=== PATIENT | male | born 1940 | race Caucasian/White ===

== ENCOUNTER 2017-10-02 20:52 | Inpatient (IN) | payer OTHER ==
[~2017-10-02] VITALS: Ht 182.9 cm; Wt 83.2 kg
[2017-10-02] MEDS ORDERED: DIPH25TA33 PO (21:50)
[2017-10-02] MEDS ORDERED: ATV/1 PO ×2 (21:50)
[2017-10-02] MEDS ORDERED: SERT-234 PO (21:50)
[2017-10-02] MEDS ORDERED: PROM25TA9 PO (21:50)
[2017-10-02] MEDS ORDERED: LEVO137T3 PO (21:50)
[2017-10-02] MEDS ORDERED: MIRT15TA PO (21:50)
[2017-10-02] MEDS ORDERED: ATEN50TA8 PO (21:50)
[2017-10-02] MEDS ORDERED: RISP2TAB22 PO (21:50)
--- NOTE | 2017-10-02 21:52 | EMERGENCY ROOM VISIT NOTE ---
History Report prepared by Oralia: Cadence Brown Under the Supervision of: Dr. Darshana Salmeron M.D. First contact with patient: 21:37 Chief Complaint: ALTERED MENTAL STATUS Stated Complaint: AMS History of Present Illness The patient is a 77 year old male who presents to the Emergency Room with complaints of an altered mental status today. Per family, the patient is very confused and did not take his medications today or yesterday. Per family, the patient also has had slurred speech and has fallen four times in the last two days. Per his family, the patient broke his glasses from one of these falls. Per family, the patient has had diarrhea but no fevers. His family reports that the patient is not on blood thinners. Limited HPI secondary to AMS. Source of History: family History Limited By: AMS Onset: today Position: other (global) Quality: other (altered mental status ) Associated Symptoms: + diarrhea, No fevers Review of Systems Limited ROS secondary to AMS. Past Medical & Surgical Medical Problems: (1) Diarrhea Unable to obtain medical history sheet secondary to AMS. Family History Unable to obtain medical history sheet secondary to AMS. Social History Smoking Status: Current Some Day Smoker Current/Historical Medications Scheduled Atenolol (Tenormin), 75 MG PO DAILY Levothyroxine Sodium (Levothyroxine Sodium), 137 MCG PO DAILY Mirtazapine (Remeron), 7.5 MG PO HS Risperidone (Risperdal), 2 MG PO BID Sertraline (Zoloft), 150 MG PO DAILY Scheduled PRN Diphenhydramine Hcl (Diphenhydramine Hcl), 25 MG PO BID PRN for Anxiety Lorazepam (Ativan), 1 MG PO QID PRN for Anxiety Lorazepam (Ativan), 0.5 MG PO DAILY PRN for Anxiety Promethazine Hcl (Phenergan), 25 MG PO BID PRN for Nausea Allergies Coded Allergies: No Known Allergies (Unverified , 10/02/17) Physical Exam Vital Signs Date Time Temp Pulse Resp B/P (MAP) Pulse Ox O2 Delivery O2 Flow Rate FiO2 10/03/17 01:09 126/67 10/02/17 23:02 37.6 104 127/63 96 Room Air 10/02/17 20:59 97 22 156/78 99 Room Air Physical Exam Vital signs reviewed. General: Chronically ill, edentulous male, in no significant distress. HEENT: No scleral icterus, PERRLA, neck supple. Atraumatic. Dry mucous membranes. Cardiovascular: Regular rate and rhythm, no extra sounds. Pulmonary: Clear to auscultation bilaterally, normal work of breathing. Abdomen: Soft, nontender, nondistended, positive bowel sounds. Musculoskeletal: Atraumatic, no peripheral edema. Some bruising on the left second toe. Fungal changes of the toenails bilaterally. Dry stool on bottom of feet. Genitourinary: Excoriated dermatitis of the inguinal folds, incontinent of stool. Neurologic: Agitated and confused, unable to speak coherently. Follows simple commands with 's help. Moves all extremities. Skin: Warm, dry, no rash Medical Decision & Procedures ER Provider Diagnostic Interpretation: Radiology results as stated below per my review and radiologist interpretation: CT OF THE HEAD WITHOUT CONTRAST CLINICAL HISTORY: fall [facility], AMS COMPARISON STUDY: No previous studies for comparison. CT DOSE: 691.05 mGy.cm TECHNIQUE: Helical axial images of the head were obtained without IV contrast. Automated exposure control was utilized for the study. A dose lowering technique was utilized adhering to the principles of ALARA. FINDINGS: Exam is mildly compromised by motion artifact. No acute intracranial hemorrhage, midline shift or mass effect is present. Mild atrophy is noted. Basilar cisterns are patent. Ventricular system is unremarkable. There are no extra-axial collections. Mayo-white differentiation is preserved. There are no findings to suggest acute dural sinus thrombosis or acute territorial infarct. There is no calvarial fracture. IMPRESSION: 1. No acute intracranial findings. 2. No calvarial fracture. Electronically signed by: Tom Wong M.D. 10/02/2017 10:40 PM Dictated Date/Time: 10/02/2017 10:37 PM CHEST ONE VIEW PORTABLE CLINICAL HISTORY: fall w [facility], AMS COMPARISON STUDY: No previous studies for comparison. FINDINGS: There are lower cervical surgical clips likely from thyroidectomy. Lung volumes are diminished. There is no lobar consolidation or evidence for pulmonary edema. Mild bibasilar opacities favor atelectasis. Cardiac size is normal. IMPRESSION: Suspected hypoventilatory study. No acute cardiopulmonary findings. Mild bibasilar opacities which favor atelectasis. Electronically signed by: Tom Wong M.D. 10/02/2017 10:36 PM Dictated Date/Time: 10/02/2017 10:35 PM Laboratory Results Test 10/02/17 20:27 10/02/17 22:23 10/03/17 00:20 Direct Bilirubin 0.2 mg/dl (0-0.2) Thyroid Stimulating Hormone (TSH) 0.010 uIu/ml (0.300-4.500) Bedside Troponin I < 0.030 ng/ml (0-0.045) Urine Color ORANGE Urine Appearance CLEAR (CLEAR) Urine pH 5.5 (4.5-7.5) Urine Specific [place] 1.015 (1.000-1.030) Urine Protein NEG (NEG) Urine Glucose (UA) NEG (NEG) Urine Ketones TRACE (NEG) Urine Occult Blood NEG (NEG) Urine Nitrite NEG (NEG) Urine Bilirubin NEG (NEG) Urine Urobilinogen NEG (NEG) Urine Leukocyte Esterase NEG (NEG) Laboratory results per my review. Medications Administered Medications (Trade) Dose Ordered Sig/Kika Route Start Time Stop Time Status Last Admin Dose Admin Sodium Chloride 250 ml @ 999 mls/hr Q16M STAT IV 10/02/17 21:53 10/02/17 22:08 DC 10/02/17 22:07 999 MLS/HR Sodium Chloride 1,000 ml @ 150 mls/hr Q6H40M STAT IV 10/02/17 21:53 10/03/17 02:57 DC 10/02/17 22:07 150 MLS/HR Sodium Chloride 250 ml @ 999 mls/hr Q16M STAT IV 10/03/17 00:08 10/03/17 00:23 DC 10/03/17 00:41 999 MLS/HR Haloperidol Lactate (Haldol Inj) 2.5 mg NOW STAT IV 10/03/17 00:23 10/03/17 00:24 DC 10/03/17 00:40 2.5 MG ECG Indication: altered mental status Rate (beats per minute): 103 Rhythm: sinus tachycardia Findings: no acute ischemic change, no ectopy ED Course 2146: Past medical records reviewed. The patient was evaluated in room B9. A complete history and physical examination was performed. 2153: Ordered Sodium Chloride 1,000 ml @ 150 mls/hr IV, Sodium Chloride 250 ml @ 999 mls/hr IV. 0008: Ordered Sodium Chloride 250 ml @ 999 mls/hr IV. 0023: Ordered Haldol Inj 2.5 mg IV. 0026: Ordered Haldol Inj 5 mg. 0030: I reviewed the patient's case with Dr. Montilla. He will evaluate the patient for further management. 0035: Upon reevaluation, the patient is resting comfortably. I discussed laboratory and radiographic results with his family. They verbalized agreement of the treatment plan. The patient will be evaluated for further management and care. Medical Decision Differential diagnosis: Etiologies such as metabolic, infection, hypoglycemia, electrolyte abnormalities , cardiac sources, intracerebral event, toxicologic, neurologic, viral illness, C. diff colitis, GI bleed, polypharmacy, as well as others were entertained. This pt was evaluated and appeared to be in no distress. Pt was initially calm and directable. Pt was unkempt and had lots of dried stool on him. Nurses cleaning him are concerned for an inability to care at home. CT head is neg for intracranial abnl. Lab work is significant for a mild dehydration. Pt was cathed for a urine sample and >1600ml or urine was obtained. PT was hydrated with NSS. Pt required sedation for increasing agitation and dangerous behavior. He was given IV haldol. Case was d/w the hospitalist for further management. His family was made aware of the plan and agrees. Medication Reconcilliation Current Medication List: was personally reviewed by me Blood Pressure Screening Patient's blood pressure: Elevated blood pressure will be monitored by the hospitalist Consults Consulting Physician: Dr. Ross Returned Call: 0030 I reviewed the patient's case with Dr. Montilla. He will evaluate the patient for further management. Impression Primary Impression: Altered mental status Additional Impression: Urinary retention Scribe Attestation The scribe's documentation has been prepared under my direction and personally reviewed by me in its entirety. I confirm that the note above accurately reflects all work, treatment, procedures, and medical decision making performed by me. Departure Information Dispostion Being Evaluated By Hospitalist Patient Instructions My [facility] Problem Qualifiers
[2017-10-02] MEDS ORDERED: SODIUM CHLORIDE 0.9% 1000ML 1,000 ML IV STA (21:53)
[2017-10-02] MEDS ORDERED: SODIUM CHLORIDE 0.9% 250ML 250 ML IV STA (21:53)
[2017-10-02 22:05] LABS: BASO % 0.2 %; BASO ABS # 0.02 K/uL (0-0.2); HEMATOCRIT 42.8 % (42-52); HEMOGLOBIN 14.6 g/dL (14.0-18.0); IG# 0.04 K/uL (0.00-0.02); LYMPH % 9.1 %; MEAN CELL VOLUME 84.4 fL (80-100); MEAN CORPUSCULAR HEMOGLOBIN 28.8 pg (25-34); MEAN CORPUSCULAR HGB CONC 34.1 g/dl (32-36); MEAN PLATELET VOLUME 10.1 fL (7.4-10.4); MONO % 2.4 %; MONO ABS # 0.29 K/uL (0.11-0.59); NEUT ABS # 10.63 K/uL (1.4-6.5); PLATELET COUNT 225 K/uL (130-400); RED CELL DISTRIBUTION WIDTH CV 15.4 % (11.5-14.5); RED CELL DISTRIBUTION WIDTH SD 46.6 fL (36.4-46.3); WHITE BLOOD COUNT 12.08 K/uL (4.8-10.8)
[2017-10-02 22:13] LABS: ALBUMIN 3.7 gm/dl (3.4-5.0); CALCIUM 7.3 mg/dl (8.5-10.1); CREATININE 1.63 mg/dl (0.60-1.40); POTASSIUM 3.8 mmol/L (3.5-5.1)
[2017-10-02 22:16] LABS: TOTAL PROTEIN 8.1 gm/dl (6.4-8.2)
--- NOTE | 2017-10-02 22:38 | DIAGNOSTIC IMAGING REPORT ---
CHEST ONE VIEW PORTABLE CLINICAL HISTORY: fall w [facility], AMS COMPARISON STUDY: No previous studies for comparison. FINDINGS: There are lower cervical surgical clips likely from thyroidectomy. Lung volumes are diminished. There is no lobar consolidation or evidence for pulmonary edema. Mild bibasilar opacities favor atelectasis. Cardiac size is normal. IMPRESSION: Suspected hypoventilatory study. No acute cardiopulmonary findings. Mild bibasilar opacities which favor atelectasis. Electronically signed by: Tom Wong M.D. 10/02/2017 10:36 PM Dictated Date/Time: 10/02/2017 10:35 PM
--- NOTE | 2017-10-02 22:41 | DIAGNOSTIC IMAGING REPORT ---
CT OF THE HEAD WITHOUT CONTRAST CLINICAL HISTORY: fall [facility], AMS COMPARISON STUDY: No previous studies for comparison. CT DOSE: 691.05 mGy.cm TECHNIQUE: Helical axial images of the head were obtained without IV contrast. Automated exposure control was utilized for the study. A dose lowering technique was utilized adhering to the principles of ALARA. FINDINGS: Exam is mildly compromised by motion artifact. No acute intracranial hemorrhage, midline shift or mass effect is present. Mild atrophy is noted. Basilar cisterns are patent. Ventricular system is unremarkable. There are no extra-axial collections. Mayo-white differentiation is preserved. There are no findings to suggest acute dural sinus thrombosis or acute territorial infarct. There is no calvarial fracture. IMPRESSION: 1. No acute intracranial findings. 2. No calvarial fracture. Electronically signed by: Tom Wong M.D. 10/02/2017 10:40 PM Dictated Date/Time: 10/02/2017 10:37 PM
[2017-10-03] MEDS ORDERED: SODIUM CHLORIDE 0.9% 250ML 250 ML IV STA (00:08)
[2017-10-03] MEDS ORDERED: HALOPERIDOL LACTATE 5 MG/ML 1 ML VIAL IV STA (00:23)
[2017-10-03] MEDS ORDERED: HALOPERIDOL LACTATE 5 MG/ML 1 ML VIAL ONE (00:26)
[2017-10-03] MEDS ORDERED: LORAZEPAM 2 MG/ML 1 ML VIAL IV STA (01:41)
[2017-10-03] MEDS ORDERED: LORAZEPAM 1 MG TAB PO PRN (01:45)
[2017-10-03 02:47] VITALS: BP 147/60; PULSE 107; TEMP 36.8; O2SAT 94; Ht 182.9 cm; Wt 83.2 kg
[2017-10-03] MEDS: SODIUM CHLORIDE 0.9% 1000ML 1,000 ML IV SCH ×3 (03:06→23:11)
[2017-10-03] MEDS ORDERED: PNEUMOCOCCAL POLYSACCHARIDES 25 MCG/0.5 ML VIAL/SYR IM. ONE (05:00)
[2017-10-03] MEDS ORDERED: PNEUMOCOCCAL ADMINISTRATION CHARGE ONE (05:00)
[2017-10-03] MEDS ORDERED: INFLUENZA ADMINISTRATION CHARGE ONE (05:00)
[2017-10-03] MEDS ORDERED: INFLUENZA VACCINE HIGH DOSE 65+ 0.5 ML SYR IM. ONE (05:00)
--- NOTE | 2017-10-03 05:12 | History and Physical ---
History & Physical Date & Time of Service: Oct 03, 2017 at 04:54 Chief Complaint: Altered Mental Status, Diarrhea Primary Care Physician: Brant Manriquez M.D. History of Present Illness Source: family 77 year old male who was brought in by family members for confusion an altered mental status. As per family, patient's baseline is that he is ambulatory and speaks coherently. In recent days patient has been having confusion - slurred speech and has fallen four times in the last two days. Patient also noted to have diarrhea at home but afebrile. Family members help patient with medications at home which includes promethazine when he has dry heaves and Ativan when he is agitated. Past Medical/Surgical History This is a 77 year old M who was brought in by family for Social History Smoking Status: Current Every Day Smoker Allergies Coded Allergies: No Known Allergies (Unverified , 10/02/17) Home Medications Scheduled Atenolol (Tenormin), 75 MG PO DAILY Levothyroxine Sodium (Levothyroxine Sodium), 137 MCG PO DAILY Mirtazapine (Remeron), 7.5 MG PO HS Risperidone (Risperdal), 2 MG PO BID Sertraline (Zoloft), 150 MG PO DAILY Scheduled PRN Diphenhydramine Hcl (Diphenhydramine Hcl), 25 MG PO BID PRN for Anxiety Lorazepam (Ativan), 1 MG PO QID PRN for Anxiety Lorazepam (Ativan), 0.5 MG PO DAILY PRN for Anxiety Promethazine Hcl (Phenergan), 25 MG PO BID PRN for Nausea Review of Systems Patient cannot provide history for review of systems Physical Exam Vital Signs Date Time Temp Pulse Resp B/P (MAP) Pulse Ox O2 Delivery O2 Flow Rate FiO2 10/03/17 02:47 36.8 107 22 147/60 94 Room Air 10/03/17 02:17 37.6 104 22 126/67 96 10/03/17 01:09 126/67 10/02/17 23:02 37.6 104 127/63 96 Room Air 10/02/17 20:59 97 22 156/78 99 Room Air General Appearance: + pertinent finding (patient verbal but incoheren) Head: normocephalic, atraumatic Eyes: normal inspection, EOMI ENT: normal ENT inspection, pharynx normal Neck: supple, no JVD, trachea midline Respiratory/Chest: chest non-tender, lungs clear, normal breath sounds, no respiratory distress, no accessory muscle use Cardiovascular: no edema, no JVD, + tachycardia Abdomen/GI: normal bowel sounds, non tender, soft, no organomegaly, + pertinent finding (patient has excoriations around groin area) Extremities/Musculoskelatal: + pertinent finding (patient on restraints, patient has brusing of toes) Neurologic/Psych: + disoriented Skin: + pertinent finding (excoriations around groin area) Diagnostics Laboratory Results Results Past 24 Hours Test 10/02/17 20:27 10/02/17 22:23 10/03/17 00:20 10/03/17 01:24 Range/Units White Blood Count 12.08 4.8-10.8 K/uL Red Blood Count 5.07 4.7-6.1 M/uL Hemoglobin 14.6 14.0-18.0 g/dL Hematocrit 42.8 42-52 % Mean Corpuscular Volume 84.4 80-100 fL Mean Corpuscular Hemoglobin 28.8 25-34 pg Mean Corpuscular Hemoglobin Concent 34.1 32-36 g/dl Platelet Count 225 130-400 K/uL Mean Platelet Volume 10.1 7.4-10.4 fL Neutrophils (%) (Auto) 88.0 % Lymphocytes (%) (Auto) 9.1 % Monocytes (%) (Auto) 2.4 % Eosinophils (%) (Auto) 0.0 % Basophils (%) (Auto) 0.2 % Neutrophils # (Auto) 10.63 1.4-6.5 K/uL Lymphocytes # (Auto) 1.10 1.2-3.4 K/uL Monocytes # (Auto) 0.29 0.11-0.59 K/uL Eosinophils # (Auto) 0.00 0-0.5 K/uL Basophils # (Auto) 0.02 0-0.2 K/uL RDW Standard Deviation 46.6 36.4-46.3 fL RDW Coefficient of Variation 15.4 11.5-14.5 % Immature Granulocyte % (Auto) 0.3 % Immature Granulocyte # (Auto) 0.04 0.00-0.02 K/uL Sodium Level 137 136-145 mmol/L Potassium Level 3.8 3.5-5.1 mmol/L Chloride Level 100 98-107 mmol/L Carbon Dioxide Level 21 21-32 mmol/L Anion Gap 17.0 3-11 mmol/L Blood Urea Nitrogen 33 7-18 mg/dl Creatinine 1.63 0.60-1.40 mg/dl Est Creatinine Clear Calc Drug Dose 41.0 ml/min Estimated GFR () 46.1 Estimated GFR (Non- 39.8 BUN/Creatinine Ratio 20.4 10-20 Random Glucose 80 70-99 mg/dl Calcium Level 7.3 8.5-10.1 mg/dl Magnesium Level 2.5 1.8-2.4 mg/dl Total Bilirubin 1.2 0.2-1 mg/dl Direct Bilirubin 0.2 0-0.2 mg/dl Aspartate Amino Transf (AST/SGOT) 27 15-37 U/L Alanine Aminotransferase (ALT/SGPT) 23 12-78 U/L Alkaline Phosphatase 96 45-117 U/L Total Protein 8.1 6.4-8.2 gm/dl Albumin 3.7 3.4-5.0 gm/dl Thyroid Stimulating Hormone (TSH) 0.010 0.300-4.500 uIu/ml Bedside Troponin I < 0.030 0-0.045 ng/ml Urine Color ORANGE Urine Appearance CLEAR CLEAR Urine pH 5.5 4.5-7.5 Urine Specific [place] 1.015 1.000-1.030 Urine Protein NEG NEG Urine Glucose (UA) NEG NEG Urine Ketones TRACE NEG Urine Occult Blood NEG NEG Urine Nitrite NEG NEG Urine Bilirubin NEG NEG Urine Urobilinogen NEG NEG Urine Leukocyte Esterase NEG NEG Impression Assessment and Plan Neuro Neuro -Altered Mental Status -incoherent speech -CT Head: Exam is mildly compromised by motion artifact. No acute intracranial hemorrhage, midline shift or mass effect is present. Mild atrophy is noted. Basilar cisterns are patent. Ventricular system is unremarkable. There are no extra-axial collections. Mayo-white differentiation is preserved. There are no findings to suggest acute dural sinus thrombosis or acute territorial infarct. There is no calvarial fracture. IMPRESSION: 1. No acute intracranial findings. 2. No calvarial fracture. -patient is on multiple sedative medications at home - could be polypharmacy -patient agitated in the ED - improved after Haldol and Ativan -continue home dose sertraline, risperidone, mirtazapine -holding promethazine and Benadryl -send B12, Folate, RPR labs -UA is negative -blood cultures to be drawn -send ESR, CRP -patient had diarrhea in ED, stool culture and C.diff to be sent Lungs: CXR: There are lower cervical surgical clips likely from thyroidectomy. Lung volumes are diminished. There is no lobar consolidation or evidence for pulmonary edema. Mild bibasilar opacities favor atelectasis. Cardiac size is normal. IMPRESSION: Suspected hypoventilatory study. No acute cardiopulmonary findings. Mild bibasilar opacities which favor atelectasis. Cardiac initial troponin normal restart home dose atenolol if hypertensive vs using alternative blood pressure medication GI patient had diarrhea in ED, stool culture and C.diff to be sent Endocrine Continue home dose Levothyroxine, check TSH, T4 levels UA is negative There are excoriations around groin area possibly from poor hygiene - ordered miconazole powder to be applied to these areas DVT ppx: SCD Disposition: Patient admitted to medicine [facility], currently sleeping, will need to re-asses mental status when he wakes up, possibly may need further imaging studies but this may be complicated if still agitated Full Code Family contacts son [phone] daughter in law [phone] Advanced Directives Existing Living Will: No Existing Power of It Help Desk Manager: No Resuscitation Status FULL RESUSCITATION VTE Prophylaxis VTE Risk Assessment Done? Y/N: Yes Risk Level: Moderate
[2017-10-03] MEDS ORDERED: MICONAZOLE NITRATE POWDER 43 GM EXT PRN (05:15)
[2017-10-03 06:57] VITALS: BP 118/48; PULSE 105; O2SAT 96
[2017-10-03] MEDS ORDERED: HALOPERIDOL LACTATE 5 MG/ML 1 ML VIAL IM ONE (07:50)
[2017-10-03] MEDS ORDERED: HALOPERIDOL LACTATE 5 MG/ML 1 ML VIAL IM PRN (08:00)
[2017-10-03 08:04] LABS: BASO % 0.2 %; BASO ABS # 0.02 K/uL (0-0.2); EOS % 0.1 %; EOS ABS # 0.01 K/uL (0-0.5); HEMATOCRIT 38.2 % (42-52); HEMOGLOBIN 12.8 g/dL (14.0-18.0); IG# 0.03 K/uL (0.00-0.02); LYMPH % 11.4 %; LYMPH ABS # 1.18 K/uL (1.2-3.4); MEAN CELL VOLUME 84.1 fL (80-100); MEAN CORPUSCULAR HEMOGLOBIN 28.2 pg (25-34); MEAN CORPUSCULAR HGB CONC 33.5 g/dl (32-36); MEAN PLATELET VOLUME 9.5 fL (7.4-10.4); MONO % 4.1 %; MONO ABS # 0.42 K/uL (0.11-0.59); NEUT % 83.9 %; NEUT ABS # 8.69 K/uL (1.4-6.5); PLATELET COUNT 171 K/uL (130-400); RED CELL DISTRIBUTION WIDTH CV 15.5 % (11.5-14.5); RED CELL DISTRIBUTION WIDTH SD 47.5 fL (36.4-46.3); WHITE BLOOD COUNT 10.35 K/uL (4.8-10.8)
[2017-10-03 08:33] LABS: ALBUMIN 3.2 gm/dl (3.4-5.0); CALCIUM 6.7 mg/dl (8.5-10.1); CREATININE 1.41 mg/dl (0.60-1.40); POTASSIUM 3.5 mmol/L (3.5-5.1)
[2017-10-03 08:38] LABS: TOTAL PROTEIN 6.5 gm/dl (6.4-8.2)
[2017-10-03] MEDS: RISPERIDONE 2 MG TAB PO SCH ×2 (11:38→21:12)
[2017-10-03] MEDS: SERTRALINE HCL 100 MG TAB PO SCH (11:39)
[2017-10-03] MEDS ORDERED: CYANOCOBALAMIN 1000 MCG/ML VIAL IM ONE (13:30)
[2017-10-03 13:56] LABS: T3 FREE 2.38 pg/ml (2.30-4.20)
[2017-10-03] MEDS ORDERED: CYANOCOBALAMIN 500 MCG TAB (VIT B-12) PO ONE (14:21)
[2017-10-03 15:36] VITALS: BP 119/66; PULSE 82; TEMP 36.7; O2SAT 97
[2017-10-03 16:00] VITALS: O2SAT 97
--- NOTE | 2017-10-03 16:02 | Progress Note ---
Internal Med Progress Note Date of Service: Oct 03, 2017. Provider Documentation: SUBJECTIVE: The patient was seen and examined Admitted with AMS and required Haldol and Ativan on admission Alert and awake this morning OBJECTIVE: Vital Signs-as noted below Exam: General-No distress at rest Eyes-normal ENT-normal Neck-supple Lungs-clear to ausucltate bilaterally Heart-regular Abdomen-Benign Extremities-No edema Neuro-AAOx3 Generally weak and very lethargic Lab data as noted below. ASSESSMENT & PLAN: -Altered Mental Status -incoherent speech -CT Head: Exam is mildly compromised by motion artifact. No acute intracranial hemorrhage, midline shift or mass effect is present. Mild atrophy is noted. Basilar cisterns are patent. Ventricular system is unremarkable. There are no extra-axial collections. Mayo-white differentiation is preserved. There are no findings to suggest acute dural sinus thrombosis or acute territorial infarct. There is no calvarial fracture. IMPRESSION: 1. No acute intracranial findings. 2. No calvarial fracture. -patient is on multiple sedative medications at home - could be polypharmacy -patient agitated in the ED - improved after Haldol and Ativan -continue home dose sertraline, risperidone, mirtazapine-may need to be adjusted -holding promethazine and Benadryl -send B12, Folate, RPR labs-Lower limit of Normal -UA is negative and Urine Tox screen pending -blood cultures to be drawn -send ESR, CRP-negative -patient had diarrhea in ED, stool culture and C.diff to be sent -may have taken medications from 's -Percocet -clinically much better today Fall Likely Mechanical contributed by Confusion Vit D is very low Will supplement HTN Will continue Atenolol Hypothyroidism Low TSH-Normal T3 and T4 Will continue replacement Psychiatry Issue On different kinds of medications Will ask for Psychiatry evaluation DVT ppx: SCD DISPOSITION Discussed with the family members To talk to Killian at [phone] Vital Signs: Date Time Temp Pulse Resp B/P (MAP) Pulse Ox O2 Delivery O2 Flow Rate FiO2 10/03/17 15:36 36.7 82 19 119/66 (83) 97 Room Air 10/03/17 08:00 Room Air 10/03/17 06:57 105 20 118/48 (71) 96 Room Air 10/03/17 02:47 36.8 107 22 147/60 94 Room Air 10/03/17 02:17 37.6 104 22 126/67 96 10/03/17 01:09 126/67 10/02/17 23:02 37.6 104 127/63 96 Room Air 10/02/17 20:59 97 22 156/78 99 Room Air Lab Results: Results Past 24 Hours Test 10/02/17 20:27 10/02/17 22:23 10/03/17 00:20 10/03/17 07:42 Range/Units White Blood Count 12.08 10.35 4.8-10.8 K/uL Red Blood Count 5.07 4.54 4.7-6.1 M/uL Hemoglobin 14.6 12.8 14.0-18.0 g/dL Hematocrit 42.8 38.2 42-52 % Mean Corpuscular Volume 84.4 84.1 80-100 fL Mean Corpuscular Hemoglobin 28.8 28.2 25-34 pg Mean Corpuscular Hemoglobin Concent 34.1 33.5 32-36 g/dl Platelet Count 225 171 130-400 K/uL Mean Platelet Volume 10.1 9.5 7.4-10.4 fL Neutrophils (%) (Auto) 88.0 83.9 % Lymphocytes (%) (Auto) 9.1 11.4 % Monocytes (%) (Auto) 2.4 4.1 % Eosinophils (%) (Auto) 0.0 0.1 % Basophils (%) (Auto) 0.2 0.2 % Neutrophils # (Auto) 10.63 8.69 1.4-6.5 K/uL Lymphocytes # (Auto) 1.10 1.18 1.2-3.4 K/uL Monocytes # (Auto) 0.29 0.42 0.11-0.59 K/uL Eosinophils # (Auto) 0.00 0.01 0-0.5 K/uL Basophils # (Auto) 0.02 0.02 0-0.2 K/uL RDW Standard Deviation 46.6 47.5 36.4-46.3 fL RDW Coefficient of Variation 15.4 15.5 11.5-14.5 % Immature Granulocyte % (Auto) 0.3 0.3 % Immature Granulocyte # (Auto) 0.04 0.03 0.00-0.02 K/uL Sodium Level 137 142 136-145 mmol/L Potassium Level 3.8 3.5 3.5-5.1 mmol/L Chloride Level 100 108 98-107 mmol/L Carbon Dioxide Level 21 19 21-32 mmol/L Anion Gap 17.0 16.0 3-11 mmol/L Blood Urea Nitrogen 33 36 7-18 mg/dl Creatinine 1.63 1.41 0.60-1.40 mg/dl Est Creatinine Clear Calc Drug Dose 41.0 47.4 ml/min Estimated GFR () 46.1 54.9 Estimated GFR (Non- 39.8 47.4 BUN/Creatinine Ratio 20.4 25.3 10-20 Random Glucose 80 68 70-99 mg/dl Calcium Level 7.3 6.7 8.5-10.1 mg/dl Magnesium Level 2.5 1.8-2.4 mg/dl Total Bilirubin 1.2 0.9 0.2-1 mg/dl Direct Bilirubin 0.2 0-0.2 mg/dl Aspartate Amino Transf (AST/SGOT) 27 95 15-37 U/L Alanine Aminotransferase (ALT/SGPT) 23 20 12-78 U/L Alkaline Phosphatase 96 71 45-117 U/L Total Protein 8.1 6.5 6.4-8.2 gm/dl Albumin 3.7 3.2 3.4-5.0 gm/dl Thyroid Stimulating Hormone (TSH) 0.010 0.300-4.500 uIu/ml Bedside Troponin I < 0.030 0-0.045 ng/ml Urine Color ORANGE Urine Appearance CLEAR CLEAR Urine pH 5.5 4.5-7.5 Urine Specific [place] 1.015 1.000-1.030 Urine Protein NEG NEG Urine Glucose (UA) NEG NEG Urine Ketones TRACE NEG Urine Occult Blood NEG NEG Urine Nitrite NEG NEG Urine Bilirubin NEG NEG Urine Urobilinogen NEG NEG Urine Leukocyte Esterase NEG NEG Erythrocyte Sedimentation Rate 28 0-14 mm/hr C-Reactive Protein 1.16 0-0.29 mg/dl Globulin 3.3 2.5-4.0 gm/dl Albumin/Globulin Ratio 1.0 0.9-2 Vitamin B12 Level 284 211-911 pg/mL Folate 7.91 >5.38 ng/mL Procalcitonin 0.07 0-0.5 ng/ml Thyroxine (T4) 7.5 4.5-10.9 mcg/dl Lyme Disease IgG Antibody NEG NEG Lyme Disease IgM Antibody NEG NEG Test 10/03/17 12:55 10/03/17 12:56 Range/Units Parathyroid Hormone (Intact) 13.9 11.1-79.5 pg/mL 25-Hydroxy Vitamin D Total 8.0 30-100 ng/ml Free Triiodothyronine 2.38 2.30-4.20 pg/ml Microbiology Results 10/03/17 Blood Culture, Received Pending 10/03/17 Blood Culture, Received Pending
[2017-10-03] MEDS ORDERED: ERGOCALCIFEROL 50,000 INTER.UNIT CAP PO ONE (16:30)
[2017-10-03] MEDS: MIRTAZAPINE TAB 15 MG TAB PO SCH (21:07)
[2017-10-03] MEDS: CALCIUM 600MG + VIT D 400 IU TAB PO SCH (21:12)
[2017-10-03 23:09] VITALS: BP 118/63; PULSE 93; TEMP 37; O2SAT 94
[2017-10-04 07:52] VITALS: BP 115/70; PULSE 68; TEMP 36.7; O2SAT 97
[2017-10-04] MEDS: BOOST VANILLA PO SCH ×2 (08:42→17:00)
[2017-10-04] MEDS: RISPERIDONE 2 MG TAB PO SCH ×2 (08:44→20:53)
[2017-10-04] MEDS: CYANOCOBALAMIN 500 MCG TAB (VIT B-12) PO SCH (08:44)
[2017-10-04] MEDS: SODIUM CHLORIDE 0.9% 1000ML 1,000 ML IV SCH ×2 (08:44→19:11)
[2017-10-04] MEDS: CALCIUM 600MG + VIT D 400 IU TAB PO SCH ×2 (08:44→20:52)
[2017-10-04] MEDS: FoLIC ACID TAB 400 MCG TAB PO SCH (08:44)
[2017-10-04] MEDS: SERTRALINE HCL 100 MG TAB PO SCH (08:45)
--- NOTE | 2017-10-04 13:11 | Clinical Documentation Query ---
QUERY 1 OF [address] GILBERT, In your clinical opinion is this patient being managed for: ( ) Toxic encephalopathy likely due to medication errors ( ) Not Agree ( ) Other explanation of clinical findings (Please Explain) (+ ) Unable to determine (Please Define) ( ) Need to Discuss Negative Tox screen The medical record reflects the following clinical findings, treatment, and risk factors. Clinical Indicators: 77 yo male presenting with altered mental status. H/P indicates mental status change could be related to polypharmacy/sedatives. Psych consult indicates pt reported he may have mixed up his medications. Treatment: CT head, hold promethazine and benadryl, psych consult, Risk Factors: age, medications QUERY 2 OF 2 In your clinical opinion is this patient being managed for: ( + ) Moderate malnutrition ( ) Not Agree ( ) Other explanation of clinical findings (Please Explain) ( ) Unable to determine (Please Define) ( ) Need to Discuss The medical record reflects the following clinical findings, treatment, and risk factors. Clinical Indicators: Documentation by raw stock dyeing machine tender indicates pt with acute moderate malnutrition with s/s of mild-mod muscle wasting seen in temples & clavicle bone region. He has mild-mod loss of subcutaneous fat seen in the orbital region. Clothing Pattern Preparer suspects wt loss of 9 lbs (4.5) has been over the last month. Pt reported his appetite as "not real hungry". Treatment:boost, vitamin D, folic acid, vitamin B 12 supplements Risk Factors: age, vitamin deficiencies Please clarify and document your clinical opinion in the progress notes and discharge summary. Terms such as "probable", "suspected", "likely", "questionable", "possible", or "still to be ruled out" are acceptable. IF IN AGREEMENT, YOU MUST DOCUMENT ABOVE DIAGNOSTIC STATEMENT IN DAILY PROGRESS NOTES AND DISCHARGE SUMMARY. This document is not part of the patient's record. Thank You, Hedy Avina RN [phone]
--- NOTE | 2017-10-04 13:50 | Psychiatric Consultation ---
Consultation Date of Consultation Oct 04, 2017. Identifying Data 77-year-old male admitted medically after an episode of altered mental status. We are consulted to evaluate psychiatric contribution. Information is gathered from both patient, and his Toyin by phone. Both are considered to be reliable. Chief Complaint "I don't know (what happened).". 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 The patient sees a psychiatric provider through the [facility], Basia Beasley, who prescribes medicines for depression and anxiety. Per the patient's Toyin , he went to bed on Saturday and he was fine. He got up at about 12:30 to go to the bathroom and she suspects he caught his foot on the stand that they had out to hold a heater. He fell hard enough to break his glasses. He was assisted to the bathroom and return to bed. Upon awakening Saturday morning he was confused, slurring his speech, making no sense. She described him as "babbling", "like in a trance". She could not leave him alone as he was unsafe. At some point he was experiencing diarrhea and was not able to find the bathroom and he was incontinent of stool over their home. She says he has never had an episode like this before and she hoped it would resolve but by the time her son came on Saturday it had not and so they brought him to the emergency department. She confirms that she gives him all of his meds and puts all of the medicine bottles themselves up in a cupboard where he does not readily have access. She has a prescription for Percocet but she has since counted them and none are missing. She describes him normally is being "laid back". In inquiring about Risperdal, she says that he takes that for severe anxiety. The only unusual thing currently is that her sister last week. This was a sister that Mando felt comfortable talking to when she wonders if he was experiencing some sadness related to this. She reports that he is legally blind without his glasses and wears hearing aids. At the time I see the patient he is sitting in his bed attempting to eat lunch. He is alert and cooperative. He is oriented to person place of events year but is off on the date by 1 day. He says that his mood recently has been "okay ". He denies any suicidal or homicidal thinking. His sleep is been okay, and reports that he has a good appetite. He is not clear what he is treated forth the [facility] and refers me to his . He denies ever having been diagnosed with bipolar disorder and denies any mood swings. He has no theory about why he was so confused. He admits that he had a fall and admits that he had several more fall since the initial fall on Saturday night. Today he feels much better, not experiencing the same confusion he did at home. His speech is generally articulate I'm able to understand everything that he says. He denies ever having had any auditory or visual hallucinations. Past Psychiatric History Current OP Treatment: psychiatrist ([facility] at the [facility] in [place]) Access to a Gun: No Suicide Attempts: No Past Medical/Surgical History History of Concussion/Seizure: No Allergies Allergies: Coded Allergies: No Known Allergies (Unverified , 10/02/17) Home Medications Scheduled Atenolol (Tenormin), 75 MG PO DAILY Levothyroxine Sodium (Levothyroxine Sodium), 137 MCG PO DAILY Mirtazapine (Remeron), 7.5 MG PO HS Risperidone (Risperdal), 2 MG PO BID Sertraline (Zoloft), 150 MG PO DAILY Scheduled PRN Diphenhydramine Hcl (Diphenhydramine Hcl), 25 MG PO BID PRN for Anxiety Lorazepam (Ativan), 1 MG PO QID PRN for Anxiety Lorazepam (Ativan), 0.5 MG PO DAILY PRN for Anxiety Promethazine Hcl (Phenergan), 25 MG PO BID PRN for Nausea Family History History of Suicide: No History of Substance Abuse: No Psychiatric History: No Alcohol Use Alcohol Use In Past 12 Months: No Smoking Use Smoking Status: Current Every Day Smoker Substance History Denies Personal History Lives in: lives in [facility] with and grandson Education: started high school (completed 10th grade) Work History: Retired Relationship History: (446 years) Children: 3 sons Legal History: none Psychological Trauma History: Denies Hx Traumatic Event Review of Systems Constitutional: denies no symptoms reported, denies see HPI, denies chills, denies diaphoresis, denies fever, denies malaise, denies weakness, denies other Eyes: reports: other (wearing prescription sunglasses as his regular glasses are broken) ENT: denies: no symptoms reported, see HPI, ear pain, ear discharge, loss of hearing, tinnitus, nasal pain, nasal congestion, rhinorrhea, epistaxis, sore throat, stidor, throat swelling, mouth pain, mouth swelling, dental pain, gum swelling, other Cardiovascular: denies: no symptoms reported, see HPI, chest pain, chest tightness, chest pressure, diaphoresis, palpitations, syncope, other Respiratory: denies: no symptoms reported, see HPI, cough, orthopnea, short of breath, stridor, wheezing, sputum production, cyanosis, BLANCO, PND, other Gastrointestinal: denies no symptoms reported, denies see HPI, denies abdominal pain, denies constipation, denies diarrhea, denies nausea, denies vomiting, denies other Genitourinary - Male: denies: no symptoms, see HPI, rash, amenorrhea, penile itching, penile discharge, testicular pain, testicular swelling, impotence, other Musculoskeletal: denies no symptoms reported, denies see HPI, denies back pain , denies gout, denies joint pain, denies joint swelling, denies muscle pain, denies muscle stiffness, denies neck pain, denies other Integumentary: denies no symptoms reported, denies see HPI, denies change in color, denies change in hair/nails, denies dryness, denies lesions, denies lumps , denies rash, denies other Neurologic: denies: no symptoms, see HPI, headache, numbness, paresthesias, pre -existing deficit, seizure, tingling, tremors, general weakness, tics, focal weakness, vertigo, lethargy, memory loss, dizziness, other Endocrine: denies: no symptoms, as stated in HPI, cold intolerance, heat intolerance, hair changes, goiter, polydipsia, polyuria, skin changes, other Hematologic / Lymphatic: denies: no symptoms, as stated in HPI, abnormal clotting, adenopathy, anemia, easy bleeding, easy bruising, gums bleeding, petechiae, other Examination Vital Signs Vital Signs Past 12 Hours Date Time Temp Pulse Resp B/P (MAP) Pulse Ox O2 Delivery O2 Flow Rate FiO2 10/04/17 08:30 Room Air 10/04/17 07:52 36.7 68 16 115/70 (85) 97 Laboratory Results Last 24 Hours Test 10/03/17 16:30 Urine Opiates Screen NEG Urine Methadone, Qualitative NEG Urine Barbiturates NEG Urine Phencyclidine (PCP) Level NEG Ur Amphetamine/Methamphetamine NEG MDMA (Ecstasy) Screen NEG Urine Benzodiazepines Screen NEG Urine Cocaine Metabolite NEG Urine Marijuana (THC) NEG Mental Examination During interview pt is: alert and oriented Appearance: appropriately groomed Eye contact is: fair Motor behavior is: no abnormal motor movements Speech: normal in rate, rhythm & volume (minimal) Affect: flat Mood is: other ("OK") Thought process: goal directed Thought content: reality based without delusions Suicidal thought are: denied Homicidal thoughts are: denied Hallucinations: denies auditory, denies visual Intelligence estimated to be: average Insight: fair Judgement: fair Impression / Recommendations Impression 77-year-old gentleman with depression and anxiety, admitted with an altered mental status status post fall at home. His says he has never experienced an episode like this previously. She administers his meds, keeps them out of his reach, and she has checked her own meds to be sure that none are missing. So this is likely not a medication-induced event. He did fall, hard breaking his glasses, CT of the head negative for acute event. He was continued on his psychiatric medications here and today his altered mental status is resolved so I doubt this has anything to do with psychiatric medications. This certainly may be a multifactorial situation where he wade his head, on top of being legally blind, hearing impaired, and perhaps mildly depressed. This certainly doesn't explain the severity of his symptoms at home. Nonetheless this event is resolving. I agree with continuing his regular outpatient medications. I would suggest we send reports of this hospitalization to Chely Beasley in [facility] so that she has current information. I do not think we have any psychiatric intervention at this time Recommendations (1) Altered mental status 10/04 - Agree with continuing all psychiatric medications as he has been on these and his altered mental status has resolved - already administers and secures meds and she has confirmed that no medications are missing from her bottles. - The patient does have Ativan at home that he uses when necessary. says last dose was given some time over the weekend although drug screen negative for benzodiazepines. I've encouraged her to limit the use of this given his episode of altered mental status in addition to his age. She agrees not to use that and less absolutely necessary and will speak with his outpatient provider. - There is no indication for inpatient mental health treatment Dr. Joanne jacques is personally been involved in reviewing this case and in the development of the above recommendations.
[2017-10-04 15:09] VITALS: BP 132/64; PULSE 92; TEMP 36.8; O2SAT 95
[2017-10-04 16:00] VITALS: O2SAT 95
--- NOTE | 2017-10-04 16:09 | Progress Note ---
Internal Med Progress Note Date of Service: Oct 04, 2017. Provider Documentation: SUBJECTIVE: The patient was seen and examined Admitted with AMS and required Haldol and Ativan on admission Alert and awake this morning Much better today -denies any symptoms OBJECTIVE: Vital Signs-as noted below Exam: General-No distress at rest Eyes-normal ENT-normal Neck-supple Lungs-clear to ausucltate bilaterally Heart-regular Abdomen-Benign Extremities-No edema Neuro-AAOx3 Generally weak and very lethargic Lab data as noted below. ASSESSMENT & PLAN: -Altered Mental Status -incoherent speech -CT Head: Exam is mildly compromised by motion artifact. No acute intracranial hemorrhage, midline shift or mass effect is present. Mild atrophy is noted. Basilar cisterns are patent. Ventricular system is unremarkable. There are no extra-axial collections. Mayo-white differentiation is preserved. There are no findings to suggest acute dural sinus thrombosis or acute territorial infarct. There is no calvarial fracture. IMPRESSION: 1. No acute intracranial findings. 2. No calvarial fracture. -patient is on multiple sedative medications at home - could be polypharmacy -patient agitated in the ED - improved after Haldol and Ativan -continue home dose sertraline, risperidone, mirtazapine-may need to be adjusted -holding promethazine and Benadryl -send B12, Folate, RPR labs-Lower limit of Normal -UA is negative and Urine Tox screen pending -blood cultures to be drawn -send ESR, CRP-negative -patient had diarrhea in ED, stool culture and C.diff to be sent -may have taken medications from 's -Percocet -clinically much better today -appreciate Psychiatry evaluation -will reduce/cancel Ativen Fall Likely Mechanical contributed by Confusion Vit D is very low Will supplement PT/OT evaluation HTN Will continue Atenolol Hypothyroidism Low TSH-Normal T3 and T4 Will continue replacement Start replacement Psychiatry Issue On different kinds of medications Will ask for Psychiatry evaluation-appreciate input DVT ppx: SCD DISPOSITION Discussed with the family members To talk to Killian at [phone] Vital Signs: Date Time Temp Pulse Resp B/P (MAP) Pulse Ox O2 Delivery O2 Flow Rate FiO2 10/04/17 15:09 36.8 92 17 132/64 (86) 95 Room Air 10/04/17 08:30 Room Air 10/04/17 07:52 36.7 68 16 115/70 (85) 97 10/04/17 00:00 Room Air 10/03/17 23:09 37.0 93 20 118/63 (81) 94 Room Air Lab Results: Results Past 24 Hours Test 10/03/17 16:30 Range/Units Urine Opiates Screen NEG NEG Urine Methadone, Qualitative NEG NEG Urine Barbiturates NEG NEG Urine Phencyclidine (PCP) Level NEG NEG Ur Amphetamine/Methamphetamine NEG NEG MDMA (Ecstasy) Screen NEG NEG Urine Benzodiazepines Screen NEG NEG Urine Cocaine Metabolite NEG NEG Urine Marijuana (THC) NEG NEG
[2017-10-04] MEDS ORDERED: LEVOTHYROXINE 75 MCG TAB PO SCH (18:30)
[2017-10-04] MEDS: MIRTAZAPINE TAB 15 MG TAB PO SCH (20:53)
[2017-10-04 22:50] VITALS: BP 136/70; PULSE 88; TEMP 36.9; O2SAT 94
[2017-10-05 01:36] LABS: RAPID PLASMA REAGIN NONREACTIVE (NONREACT)
[2017-10-05] MEDS: LEVOTHYROXINE 137 MCG TAB PO SCH (05:13)
[2017-10-05] MEDS: SODIUM CHLORIDE 0.9% 1000ML 1,000 ML IV SCH (05:13)
[2017-10-05 07:55] VITALS: BP 145/76; PULSE 97; TEMP 36.9; O2SAT 95
[2017-10-05] MEDS: BOOST VANILLA PO SCH ×2 (08:10→17:00)
[2017-10-05] MEDS: CALCIUM 600MG + VIT D 400 IU TAB PO SCH ×2 (08:13→21:03)
[2017-10-05] MEDS: SERTRALINE HCL 100 MG TAB PO SCH (08:13)
[2017-10-05] MEDS: RISPERIDONE 2 MG TAB PO SCH ×2 (08:14→21:04)
[2017-10-05] MEDS: CYANOCOBALAMIN 500 MCG TAB (VIT B-12) PO SCH (08:14)
[2017-10-05] MEDS: FoLIC ACID TAB 400 MCG TAB PO SCH (08:14)
[2017-10-05 10:58] LABS: HEMOGLOBIN 12.4 g/dL (14.0-18.0); MEAN CELL VOLUME 83.3 fL (80-100); MEAN CORPUSCULAR HEMOGLOBIN 28.7 pg (25-34); MEAN CORPUSCULAR HGB CONC 34.4 g/dl (32-36); MEAN PLATELET VOLUME 9.2 fL (7.4-10.4); PLATELET COUNT 135 K/uL (130-400); RED CELL DISTRIBUTION WIDTH CV 14.9 % (11.5-14.5); RED CELL DISTRIBUTION WIDTH SD 45.4 fL (36.4-46.3); WHITE BLOOD COUNT 5.74 K/uL (4.8-10.8)
[2017-10-05 11:43] LABS: CALCIUM 7.3 mg/dl (8.5-10.1); CREATININE 0.73 mg/dl (0.60-1.40); POTASSIUM 3.4 mmol/L (3.5-5.1)
[2017-10-05] MEDS ORDERED: NURSING VERBAL MED ORDER ONE (14:30)
[2017-10-05 15:35] VITALS: BP 131/70; PULSE 85; TEMP 36.7; O2SAT 96
--- NOTE | 2017-10-05 15:41 | Progress Note ---
Internal Med Progress Note Date of Service: Oct 05, 2017. Provider Documentation: SUBJECTIVE: The patient was seen and examined Admitted with AMS and required Haldol and Ativan on admission Generally weak-will get PT/OT Denies any symptoms OBJECTIVE: Vital Signs-as noted below Exam: General-No distress at rest Eyes-normal ENT-normal Neck-supple Lungs-clear to ausucltate bilaterally Heart-regular Abdomen-Benign Extremities-No edema Neuro-AAOx3 Generally weak and very lethargic Lab data as noted below. ASSESSMENT & PLAN: -Altered Mental Status-reverted to baseline -incoherent speech -CT Head: Exam is mildly compromised by motion artifact. No acute intracranial hemorrhage, midline shift or mass effect is present. Mild atrophy is noted. Basilar cisterns are patent. Ventricular system is unremarkable. There are no extra-axial collections. Mayo-white differentiation is preserved. There are no findings to suggest acute dural sinus thrombosis or acute territorial infarct. There is no calvarial fracture. IMPRESSION: 1. No acute intracranial findings. 2. No calvarial fracture. -patient is on multiple sedative medications at home - could be polypharmacy -patient agitated in the ED - improved after Haldol and Ativan -continue home dose sertraline, risperidone, mirtazapine-may need to be adjusted -holding promethazine and Benadryl -send B12, Folate, RPR labs-Lower limit of Normal -UA is negative and Urine Tox screen pending -blood cultures to be drawn -send ESR, CRP-negative -patient had diarrhea in ED, stool culture and C.diff to be sent -may have taken medications from 's -Percocet -clinically much better today -appreciate Psychiatry evaluation -will reduce/cancel Ativan -no more symptoms -likely discharge tomorrow Fall Likely Mechanical contributed by Confusion Vit D is very low Will supplement PT/OT evaluation HTN Will continue Atenolol Hypothyroidism Low TSH-Normal T3 and T4 Will continue replacement Start replacement Psychiatry Issue On different kinds of medications Will ask for Psychiatry evaluation-appreciate input DVT ppx: SCD DISPOSITION Discussed with the family members To talk to Killian at [phone] Vital Signs: Date Time Temp Pulse Resp B/P (MAP) Pulse Ox O2 Delivery O2 Flow Rate FiO2 10/05/17 15:35 36.7 85 18 131/70 (90) 96 Room Air 10/05/17 07:55 36.9 97 16 145/76 (99) 95 10/05/17 07:35 Room Air 10/04/17 23:45 Room Air 10/04/17 22:50 36.9 88 18 136/70 (92) 94 Room Air 10/04/17 16:00 95 Room Air Lab Results: Results Past 24 Hours Test 10/05/17 10:48 Range/Units White Blood Count 5.74 4.8-10.8 K/uL Red Blood Count 4.32 4.7-6.1 M/uL Hemoglobin 12.4 14.0-18.0 g/dL Hematocrit 36.0 42-52 % Mean Corpuscular Volume 83.3 80-100 fL Mean Corpuscular Hemoglobin 28.7 25-34 pg Mean Corpuscular Hemoglobin Concent 34.4 32-36 g/dl RDW Standard Deviation 45.4 36.4-46.3 fL RDW Coefficient of Variation 14.9 11.5-14.5 % Platelet Count 135 130-400 K/uL Mean Platelet Volume 9.2 7.4-10.4 fL Sodium Level 140 136-145 mmol/L Potassium Level 3.4 3.5-5.1 mmol/L Chloride Level 107 98-107 mmol/L Carbon Dioxide Level 26 21-32 mmol/L Anion Gap 8.0 3-11 mmol/L Blood Urea Nitrogen 16 7-18 mg/dl Creatinine 0.73 0.60-1.40 mg/dl Est Creatinine Clear Calc Drug Dose 91.6 ml/min Estimated GFR () 103.0 Estimated GFR (Non- 88.8 BUN/Creatinine Ratio 21.8 10-20 Random Glucose 93 70-99 mg/dl Calcium Level 7.3 8.5-10.1 mg/dl Magnesium Level 2.3 1.8-2.4 mg/dl
[2017-10-05 16:00] VITALS: O2SAT 96
[2017-10-05] MEDS ORDERED: POTASSIUM CHLORIDE 10 MEQ TABCR PO ONE (16:30)
[2017-10-05] MEDS: MIRTAZAPINE TAB 15 MG TAB PO SCH (21:04)
[2017-10-05 23:35] VITALS: BP 135/68; PULSE 80; TEMP 36.7; O2SAT 94
[2017-10-06] MEDS: LEVOTHYROXINE 137 MCG TAB PO SCH (05:58)
[2017-10-06 06:45] VITALS: BP 137/75; PULSE 80; TEMP 36.7; O2SAT 94
[2017-10-06 07:45] VITALS: O2SAT 94
[2017-10-06] MEDS: CALCIUM 600MG + VIT D 400 IU TAB PO SCH (08:05)
[2017-10-06] MEDS: CYANOCOBALAMIN 500 MCG TAB (VIT B-12) PO SCH (08:05)
[2017-10-06] MEDS: BOOST VANILLA PO SCH (08:05)
[2017-10-06] MEDS: RISPERIDONE 2 MG TAB PO SCH (08:05)
[2017-10-06] MEDS: SERTRALINE HCL 100 MG TAB PO SCH (08:05)
[2017-10-06] MEDS: FoLIC ACID TAB 400 MCG TAB PO SCH (08:05)
[2017-10-06 10:22] VITALS: BP 137/75; PULSE 80; TEMP 36.7; O2SAT 94
[2017-10-06 10:41] LABS: CALCIUM 7.7 mg/dl (8.5-10.1); CREATININE 0.74 mg/dl (0.60-1.40); POTASSIUM 3.8 mmol/L (3.5-5.1)
--- NOTE | 2017-10-06 11:49 | Progress Note ---
Internal Med Progress Note Date of Service: Oct 06, 2017. Provider Documentation: SUBJECTIVE: The patient was seen and examined Admitted with AMS and required Haldol and Ativan on admission Generally weak-will get PT/OT No more confusion and denies any symptoms OBJECTIVE: Vital Signs-as noted below Exam: General-No distress at rest Eyes-normal ENT-normal Neck-supple Lungs-clear to ausucltate bilaterally No Wheezing and or crackles Heart-regular Abdomen-Benign Extremities-No edema Neuro-AAOx3 Generally weak and very lethargic Lab data as noted below. ASSESSMENT & PLAN: -Altered Mental Status-reverted to baseline-resolved -incoherent speech -CT Head: Exam is mildly compromised by motion artifact. No acute intracranial hemorrhage, midline shift or mass effect is present. Mild atrophy is noted. Basilar cisterns are patent. Ventricular system is unremarkable. There are no extra-axial collections. Maoy-white differentiation is preserved. There are no findings to suggest acute dural sinus thrombosis or acute territorial infarct. There is no calvarial fracture. IMPRESSION: 1. No acute intracranial findings. 2. No calvarial fracture. -patient is on multiple sedative medications at home - could be polypharmacy -patient agitated in the ED - improved after Haldol and Ativan -continue home dose sertraline, risperidone, mirtazapine-may need to be adjusted -holding promethazine and Benadryl -send B12, Folate, RPR labs-Lower limit of Normal -UA is negative and Urine Tox screen pending -blood cultures to be drawn -send ESR, CRP-negative -patient had diarrhea in ED, stool culture and C.diff to be sent -may have taken medications from 's -Percocet -urine Tox screen -negative -appreciate Psychiatry evaluation -will reduce/cancel Ativan -no more symptoms -likely discharge tomorrow Fall Likely Mechanical contributed by Confusion Vit D is very low Will supplement PT/OT evaluation-recommended home HTN Will continue Atenolol Hypothyroidism Low TSH-Normal T3 and T4 Will continue replacement Start replacement Psychiatry Issue On different kinds of medications Will ask for Psychiatry evaluation-appreciate input Less uise of Ativen DVT ppx: SCD DISPOSITION Discussed with the family members To talk to Killian at [phone] Vital Signs: Date Time Temp Pulse Resp B/P (MAP) Pulse Ox O2 Delivery O2 Flow Rate FiO2 10/06/17 10:22 36.7 80 18 94 Room Air 10/06/17 07:45 94 Room Air 10/06/17 06:45 36.7 80 18 137/75 (95) 94 Room Air 10/06/17 00:00 Room Air 10/05/17 23:35 36.7 80 18 135/68 (90) 94 Room Air 10/05/17 16:00 96 Room Air 10/05/17 15:35 36.7 85 18 131/70 (90) 96 Room Air Lab Results: Results Past 24 Hours Test 10/06/17 05:50 Range/Units Sodium Level 140 136-145 mmol/L Potassium Level 3.8 3.5-5.1 mmol/L Chloride Level 106 98-107 mmol/L Carbon Dioxide Level 26 21-32 mmol/L Anion Gap 8.0 3-11 mmol/L Blood Urea Nitrogen 16 7-18 mg/dl Creatinine 0.74 0.60-1.40 mg/dl Est Creatinine Clear Calc Drug Dose 90.3 ml/min Estimated GFR () 102.4 Estimated GFR (Non- 88.3 BUN/Creatinine Ratio 21.0 10-20 Random Glucose 103 70-99 mg/dl Calcium Level 7.7 8.5-10.1 mg/dl Microbiology Results 10/05/17 Shiga Toxin Test, Received Pending 10/05/17 Stool Culture, Received Pending 10/05/17 C.difficile Toxin B Gene (PCR) - Final, Complete No C. difficile toxin B gene detected
[2017-10-06] MEDS ORDERED: ERGO500011 PO (12:09)
[2017-10-06] MEDS ORDERED: FLV400 PO (12:09)
[2017-10-06] MEDS ORDERED: VTMB12 PO (12:09)
--- NOTE | 2017-10-06 12:09 | Discharge Instructions ---
Discharge Instructions Date of Service Oct 06, 2017. Admission Reason for Admission: Altered Mental Status, Diarrhea Discharge Discharge Diagnosis / Problem: Acute Confusion-resolved ,Fall,Vit D deficiency Discharge Goals Goal(s): Prevent Disease Progression Activity Recommendations Activity Limitations: resume your previous activity . Instructions / Follow-Up Instructions / Follow-Up Dr Manriquez on 10/11/17 at 9:45AM Current Hospital Diet Patient's current hospital diet: Regular Diet Discharge Diet Recommended Diet: Regular Diet Pending Studies Studies pending at discharge: no Medical Emergencies . Who to Call and When: Medical Emergencies: If at any time you feel your situation is an emergency, please call 911 immediately. . Non-Emergent Contact Non-Emergency issues call your: Primary Care Provider . Past History Medical & Surgical History: (1) Urinary retention (2) Altered mental status (3) Diarrhea . "Provider Documentation" section prepared by Prakash Krueger. . VTE Core Measure Inpt VTE Proph given/why not?: SCD's
--- NOTE | 2017-10-07 08:02 | Discharge Summary ---
Discharge Summary Date of Service Oct 07, 2017. Discharge Summary Admission Date: Oct 03, 2017 at 1:20 am Discharge Date: Oct 06, 2017 Discharge Disposition: Home with services Principal Diagnosis: Acute Confusion-resolved ,Fall,Vit D deficiency Secondary Diagnoses/Problems: Please see H&P and Hospital progress note Medication Reconciliation New Medications: Cyanocobalamin (Vitamin B-12) 500 Mcg Tab 500 MCG PO QAM for 30 Days, #30 TAB Ergocalciferol (Vitamin D 31538 Unit) 50,000 Unit Cap 82482 INTERUNIT PO Th@0900 for 35 Days, #5 CAP Afeter that 400 IU daily Folic Acid (Folic Acid) 400 Mcg Tab 400 MCG PO QAM for 30 Days, #30 TAB Continued Medications: Atenolol (Tenormin) 50 Mg Tab 75 MG PO DAILY, TAB Diphenhydramine Hcl (Diphenhydramine Hcl) 25 Mg Tab 12.5 MG PO BID PRN for Anxiety Levothyroxine Sodium (Levothyroxine Sodium) 137 Mcg Tab 137 MCG PO DAILY for 90 Days, #90 TAB 3 Refills Mirtazapine (Remeron) 15 Mg Tab 7.5 MG PO HS, TAB Promethazine Hcl (Phenergan) 25 Mg Tab 12.5 MG PO BID PRN for Nausea, TAB Risperidone (Risperdal) 2 Mg Tab 2 MG PO BID, TAB Sertraline (Zoloft) 100 Mg Tab 150 MG PO DAILY, TAB Discontinued Medications: Lorazepam (Ativan) 1 Mg Tab 1 MG PO QID PRN for Anxiety, TAB Lorazepam (Ativan) 1 Mg Tab 0.5 MG PO DAILY PRN for Anxiety, TAB Admission Information HPI (per Admitting provider): 77 year old male who was brought in by family members for confusion an altered mental status. As per family, patient's baseline is that he is ambulatory and speaks coherently. In recent days patient has been having confusion - slurred speech and has fallen four times in the last two days. Patient also noted to have diarrhea at home but afebrile. Family members help patient with medications at home which includes promethazine when he has dry heaves and Ativan when he is agitated. Past Medical/Surgical History This is a 77 year old M who was brought in by family for Social History Smoking Status: Current Every Day Smoker Allergies Coded Allergies: No Known Allergies (Unverified , 10/02/17) Home Medications Scheduled Atenolol (Tenormin), 75 MG PO DAILY Levothyroxine Sodium (Levothyroxine Sodium), 137 MCG PO DAILY Mirtazapine (Remeron), 7.5 MG PO HS Risperidone (Risperdal), 2 MG PO BID Sertraline (Zoloft), 150 MG PO DAILY Scheduled PRN Diphenhydramine Hcl (Diphenhydramine Hcl), 25 MG PO BID PRN for Anxiety Lorazepam (Ativan), 1 MG PO QID PRN for Anxiety Lorazepam (Ativan), 0.5 MG PO DAILY PRN for Anxiety Promethazine Hcl (Phenergan), 25 MG PO BID PRN for Nausea Review of Systems Patient cannot provide history for review of systems Physical Ex - H&P Physical Exam Vital Signs Date Time Temp Pulse Resp B/P (MAP) Pulse Ox O2 Delivery O2 Flow Rate FiO2 10/03/17 02:47 36.8 107 22 147/60 94 Room Air 10/03/17 02:17 37.6 104 22 126/67 96 10/03/17 01:09 126/67 10/02/17 23:02 37.6 104 127/63 96 Room Air 10/02/17 20:59 97 22 156/78 99 Room Air General Appearance: + pertinent finding (patient verbal but incoheren) Head: normocephalic, atraumatic Eyes: normal inspection, EOMI ENT: normal ENT inspection, pharynx normal Neck: supple, no JVD, trachea midline Respiratory/Chest: chest non-tender, lungs clear, normal breath sounds, no respiratory distress, no accessory muscle use Cardiovascular: no edema, no JVD, + tachycardia Abdomen/GI: normal bowel sounds, non tender, soft, no organomegaly, + pertinent finding (patient has excoriations around groin area) Extremities/Musculoskelatal: + pertinent finding (patient on restraints, patient has brusing of toes) Neurologic/Psych: + disoriented Skin: + pertinent finding (excoriations around groin area) Diagnostics - H&P Diagnostics Laboratory Results Results Past 24 Hours Test 10/02/17 20:27 10/02/17 22:23 10/03/17 00:20 10/03/17 01:24 Range/Units White Blood Count 12.08 4.8-10.8 K/uL Red Blood Count 5.07 4.7-6.1 M/uL Hemoglobin 14.6 14.0-18.0 g/dL Hematocrit 42.8 42-52 % Mean Corpuscular Volume 84.4 80-100 fL Mean Corpuscular Hemoglobin 28.8 25-34 pg Mean Corpuscular Hemoglobin Concent 34.1 32-36 g/dl Platelet Count 225 130-400 K/uL Mean Platelet Volume 10.1 7.4-10.4 fL Neutrophils (%) (Auto) 88.0 % Lymphocytes (%) (Auto) 9.1 % Monocytes (%) (Auto) 2.4 % Eosinophils (%) (Auto) 0.0 % Basophils (%) (Auto) 0.2 % Neutrophils # (Auto) 10.63 1.4-6.5 K/uL Lymphocytes # (Auto) 1.10 1.2-3.4 K/uL Monocytes # (Auto) 0.29 0.11-0.59 K/uL Eosinophils # (Auto) 0.00 0-0.5 K/uL Basophils # (Auto) 0.02 0-0.2 K/uL RDW Standard Deviation 46.6 36.4-46.3 fL RDW Coefficient of Variation 15.4 11.5-14.5 % Immature Granulocyte % (Auto) 0.3 % Immature Granulocyte # (Auto) 0.04 0.00-0.02 K/uL Sodium Level 137 136-145 mmol/L Potassium Level 3.8 3.5-5.1 mmol/L Chloride Level 100 98-107 mmol/L Carbon Dioxide Level 21 21-32 mmol/L Anion Gap 17.0 3-11 mmol/L Blood Urea Nitrogen 33 7-18 mg/dl Creatinine 1.63 0.60-1.40 mg/dl Est Creatinine Clear Calc Drug Dose 41.0 ml/min Estimated GFR () 46.1 Estimated GFR (Non- 39.8 BUN/Creatinine Ratio 20.4 10-20 Random Glucose 80 70-99 mg/dl Calcium Level 7.3 8.5-10.1 mg/dl Magnesium Level 2.5 1.8-2.4 mg/dl Total Bilirubin 1.2 0.2-1 mg/dl Direct Bilirubin 0.2 0-0.2 mg/dl Aspartate Amino Transf (AST/SGOT) 27 15-37 U/L Alanine Aminotransferase (ALT/SGPT) 23 12-78 U/L Alkaline Phosphatase 96 45-117 U/L Total Protein 8.1 6.4-8.2 gm/dl Albumin 3.7 3.4-5.0 gm/dl Thyroid Stimulating Hormone (TSH) 0.010 0.300-4.500 uIu/ml Bedside Troponin I < 0.030 0-0.045 ng/ml Urine Color ORANGE Urine Appearance CLEAR CLEAR Urine pH 5.5 4.5-7.5 Urine Specific [place] 1.015 1.000-1.030 Urine Protein NEG NEG Urine Glucose (UA) NEG NEG Urine Ketones TRACE NEG Urine Occult Blood NEG NEG Urine Nitrite NEG NEG Urine Bilirubin NEG NEG Urine Urobilinogen NEG NEG Urine Leukocyte Esterase NEG NEG Impression - H&P Impression Assessment and Plan Neuro Neuro -Altered Mental Status -incoherent speech -CT Head: Exam is mildly compromised by motion artifact. No acute intracranial hemorrhage, midline shift or mass effect is present. Mild atrophy is noted. Basilar cisterns are patent. Ventricular system is unremarkable. There are no extra-axial collections. Mayo-white differentiation is preserved. There are no findings to suggest acute dural sinus thrombosis or acute territorial infarct. There is no calvarial fracture. IMPRESSION: 1. No acute intracranial findings. 2. No calvarial fracture. -patient is on multiple sedative medications at home - could be polypharmacy -patient agitated in the ED - improved after Haldol and Ativan -continue home dose sertraline, risperidone, mirtazapine -holding promethazine and Benadryl -send B12, Folate, RPR labs -UA is negative -blood cultures to be drawn -send ESR, CRP -patient had diarrhea in ED, stool culture and C.diff to be sent Lungs: CXR: There are lower cervical surgical clips likely from thyroidectomy. Lung volumes are diminished. There is no lobar consolidation or evidence for pulmonary edema. Mild bibasilar opacities favor atelectasis. Cardiac size is normal. IMPRESSION: Suspected hypoventilatory study. No acute cardiopulmonary findings. Mild bibasilar opacities which favor atelectasis. Cardiac initial troponin normal restart home dose atenolol if hypertensive vs using alternative blood pressure medication GI patient had diarrhea in ED, stool culture and C.diff to be sent Endocrine Continue home dose Levothyroxine, check TSH, T4 levels UA is negative There are excoriations around groin area possibly from poor hygiene - ordered miconazole powder to be applied to these areas DVT ppx: SCD Disposition: Patient admitted to medicine [facility], currently sleeping, will need to re-asses mental status when he wakes up, possibly may need further imaging studies but this may be complicated if still agitated Full Code Family contacts son [phone] daughter in law [phone] Advanced Directives Existing Living Will: No Existing Power of Home Inspector: No Resuscitation Status FULL RESUSCITATION VTE Prophylaxis VTE Risk Assessment Done? Y/N: Yes Risk Level: Moderate Physical Exam (per Admitting): General Appearance: + pertinent finding (patient verbal but incoheren) Head: normocephalic, atraumatic Eyes: normal inspection, EOMI ENT: normal ENT inspection, pharynx normal Neck: supple, no JVD, trachea midline Respiratory/Chest: chest non-tender, lungs clear, normal breath sounds, no respiratory distress, no accessory muscle use Cardiovascular: no edema, no JVD, + tachycardia Abdomen/GI: normal bowel sounds, non tender, soft, no organomegaly, + pertinent finding (patient has excoriations around groin area) Extremities/Musculoskelatal: + pertinent finding (patient on restraints, patient has brusing of toes) Neurologic/Psych: + disoriented Skin: + pertinent finding (excoriations around groin area) Hospital Course -Altered Mental Status-reverted to baseline-resolved -incoherent speech -CT Head: Exam is mildly compromised by motion artifact. No acute intracranial hemorrhage, midline shift or mass effect is present. Mild atrophy is noted. Basilar cisterns are patent. Ventricular system is unremarkable. There are no extra-axial collections. Mayo-white differentiation is preserved. There are no findings to suggest acute dural sinus thrombosis or acute territorial infarct. There is no calvarial fracture. IMPRESSION: 1. No acute intracranial findings. 2. No calvarial fracture. -patient is on multiple sedative medications at home - could be polypharmacy -patient agitated in the ED - improved after Haldol and Ativan -continue home dose sertraline, risperidone, mirtazapine-may need to be adjusted -holding promethazine and Benadryl -send B12, Folate, RPR labs-Lower limit of Normal -UA is negative and Urine Tox screen pending -blood cultures to be drawn -send ESR, CRP-negative -patient had diarrhea in ED, stool culture and C.diff to be sent -may have taken medications from 's -Percocet -urine Tox screen -negative -appreciate Psychiatry evaluation -will reduce/cancel Ativan -no more symptoms -likely discharge tomorrow Fall Likely Mechanical contributed by Confusion Vit D is very low Will supplement PT/OT evaluation-recommended home HTN Will continue Atenolol Hypothyroidism Low TSH-Normal T3 and T4 Will continue replacement Start replacement Psychiatry Issue On different kinds of medications Will ask for Psychiatry evaluation-appreciate input Less uise of Ativen DVT ppx: SCD DISPOSITION Discussed with the family members To talk to Killian at [phone] Total time spent on discharge = 35 minutes This includes examination of the patient, discharge planning, medication reconciliation, and communication with other providers. Discharge Instructions Date of Service Oct 06, 2017. Admission Reason for Admission: Altered Mental Status, Diarrhea Discharge Discharge Diagnosis / Problem: Acute Confusion-resolved ,Fall,Vit D deficiency Discharge Goals Goal(s): Prevent Disease Progression Activity Recommendations Activity Limitations: resume your previous activity . Instructions / Follow-Up Instructions / Follow-Up Dr Manriquez on 10/11/17 at 9:45AM Current Hospital Diet Patient's current hospital diet: Regular Diet Discharge Diet Recommended Diet: Regular Diet Pending Studies Studies pending at discharge: no Medical Emergencies . Who to Call and When: Medical Emergencies: If at any time you feel your situation is an emergency, please call 911 immediately. . Non-Emergent Contact Non-Emergency issues call your: Primary Care Provider . Past History Medical & Surgical History: (1) Urinary retention (2) Altered mental status (3) Diarrhea . "Provider Documentation" section prepared by Prakash Krueger. . VTE Core Measure Inpt VTE Proph given/why not?: SCD's <Electronically signed by Prakash Krueger M.D.> Additional Copies To Brant Manriquez M.D.
[2017-10-10] MEDS ORDERED: ERGOCALCIFEROL 50,000 INTER.UNIT CAP PO SCH (09:00)
== END 2017-10-06 12:58 | disposition home health service (06) | DRG 948 ==
LOC: C.EDB 21:04 → C.MS2W 10-03 01:20 → ENRESERV 10-03 01:42
PROVIDERS: ADMIT Hospitalist; ATTEND Internal Medicine
DX: R41.0 Disorientation, unspecified (principal); R29.6 Repeated falls; R19.7 Diarrhea, unspecified; I10 Essential (primary) hypertension; E03.9 Hypothyroidism, unspecified; E55.9 Vitamin D deficiency, unspecified; F17.200 Nicotine dependence, unspecified, uncomplicated; Z79.899 Other long term (current) drug therapy; Z91.81 History of falling